=== PATIENT | female | born 1995 ===

== ENCOUNTER 2020-01-30 13:28 | Outpatient (REF) | payer OTHER, SELFPAY | END 2020-01-30 13:29 | disposition home or self-care (01) | LOC: HO.HMGCLDS 13:28 | PROVIDERS: PCP Internal Medicine; Visit Provider Internal Medicine | DX: Z20.828 Contact with and (suspected) exposure to other viral communicable diseases (principal) | CPT/HCPCS: C9803; U0003 ==

== ENCOUNTER 2020-03-11 11:05 | Outpatient (REF) | payer OTHER, SELFPAY | END 2020-03-11 11:06 | disposition home or self-care (01) | LOC: HO.HMGCLDS 11:05 | PROVIDERS: PCP Internal Medicine; Visit Provider Internal Medicine | DX: Z20.828 Contact with and (suspected) exposure to other viral communicable diseases (principal) | CPT/HCPCS: C9803; U0003 ==

== ENCOUNTER 2020-03-18 12:15 | Outpatient (REF) | payer OTHER, SELFPAY | END 2020-03-18 12:16 | disposition home or self-care (01) | LOC: HO.HMGCLDS 12:15 | PROVIDERS: PCP Internal Medicine; Visit Provider Internal Medicine | DX: Z20.828 Contact with and (suspected) exposure to other viral communicable diseases (principal) | CPT/HCPCS: C9803; U0003 ==

== ENCOUNTER 2020-04-01 11:27 | Outpatient (REF) | payer OTHER, SELFPAY | END 2020-04-01 11:28 | disposition home or self-care (01) | LOC: HO.HMGCLDS 11:27 | PROVIDERS: PCP Internal Medicine; Visit Provider Internal Medicine | DX: Z20.822 Contact with and (suspected) exposure to COVID-19 (principal) | CPT/HCPCS: 36415; C9803; U0003 ==

== ENCOUNTER 2020-10-11 11:50 | Outpatient (REF) | payer OTHER, SELFPAY ==
--- NOTE | ~2020-10-11 | XR_ITS ---
EXAMINATION: XR TOES, LEFT CLINICAL INFORMATION: Unable to move first second and third toes. COMPARISON: None TECHNIQUE: 3 views of the left toes were obtained. FINDINGS: There are no fractures or dislocations. No joint effusion is identified. No bone, joint or soft tissue abnormality is demonstrated. XR/XR toe LT min 2V IMPRESSION: Unremarkable left third, fourth and fifth toes.
== END 2020-10-11 11:51 | disposition home or self-care (01) ==
LOC: HO.HMGCX 11:50
PROVIDERS: PCP Internal Medicine; Visit Provider Internal Medicine
DX: S92.912A Unspecified fracture of left toe(s), initial encounter for closed fracture (principal)
CPT/HCPCS: 73660

== ENCOUNTER 2020-10-26 13:16 | Outpatient (REF) | payer OTHER, SELFPAY | END 2020-10-26 13:17 | disposition home or self-care (01) | LOC: HO.LNP 13:16 | PROVIDERS: Visit Provider Internal Medicine | DX: Z20.822 Contact with and (suspected) exposure to COVID-19 (principal) | CPT/HCPCS: U0003; U0005 ==

== ENCOUNTER 2022-12-18 12:37 | Outpatient (AMB) | payer OTHER, SELFPAY ==
--- NOTE | 2022-12-18 12:38 | A.OFFPC_ITS ---
Vital Signs 12/18/22 12:39 Height 5 ft 5 in Weight 215 lb BMI 35.8 BP 104/66 Blood Pressure Location Lt brachial Position Sitting Pulse 84 Pulse Source Palpation Intake Visit Reasons: PE Intake Note: Pt is here today for PE. Allergies No Known Allergies Allergy (Verified 12/18/22 12:41) Medication List - Last Reconciled 12/18/22 by Elliott Oglesby MD cholecalciferol (vitamin D3) 25 mcg PO DAILY 90 days norethindrone-e.estradiol-iron 1 mg-20 mcg (21)/75 mg (7) 1 tab PO QPM omeprazole 20 mg PO DAILY Tobacco use date assessed: 12/18/22 Dental Screening Dental Screen Date: 12/18/22 Did you have a dental visit in the last 12 months?: Yes Did you have a dental problem in the last 6 months where you did not have access to dental care?: No Was dental information given to patient?: Patient has dentist HPI PE HPI Details Patient is 27-year-old female came in today for physical examination Last time she was seen was July of this year when she presented with epigastric discomfort She was started on omeprazole she is feeling fine now. BMI is elevated at 35.8 patient is aware and is trying to lose weight She declined nail making machine setter appointment today. Labs are needed fasting order placed patient notified. She has a OBGYN with [facility] Pap smear is up-to-date. Follow-up 1 year for physical exam [facility] Social History Housing: House Patient Tobacco Use Status: Never used Tobacco e-Cigarette/Vaping Use: Never Used Second Hand Smoke Exposure: No Current occupational status: employed Cognitive needs: No Hearing needs: No Vision needs: No Questionnaire PHQ-9 Over the last 2 weeks, how often have you been bothered by any of the following problems? 1. Little interest or pleasure in doing things: not at all 2. Feeling down, depressed, or hopeless: not at all 3. Trouble falling or staying asleep, or sleeping too much: not at all 4. Feeling tired or having little energy: several days 5. Poor appetite or overeating: not at all 6. Feeling bad about yourself - or that you are a failure or have let yourself or your family down: not at all 7. Trouble concentrating on things, such as reading the newspaper or watching television: not at all 8. Moving or speaking so slowly that other people could have noticed. Or the opposite - being so fidgety or restless that you have been moving around a lot m ore than usual: not at all 9. Thoughts that you would be better off or of hurting yourself in some way: not at all Total score: 1 Depression Screening Interpretation: Negative [id number] - PHQ-9 Billing: Yes Source: Developed by Drs. Ricki Doyle, Natividad Natarajan, Derek Gonzalez and colleagues, with an educational madelyn from [employer]. Thrive Questionnaire Date Thrive assessed: 12/18/22 I am a: Patient What is your living situation today?: I have a steady place to live Within the past 12 months, did the food you bought not last and you didn't have the money to get more?: Never true Within the past 12 months, did you worry whether your food would run out before you got money to buy more?: Never true Do you have trouble paying for medicines?: No Do you have trouble getting transportation to medical appointments?: No Do you have trouble paying your heating and electricity bill?: No Do you have trouble taking care of your child, family member or friend?: No Do you have trouble with day-to-day activities such as bathing, preparing meals, shopping, managing finances, etc.?: No Are you currently unemployed and looking for a job?: No Are you interested in more education?: No Currently or been in a relationship where the following occur: no concerns reported AUDIT C Alcohol Use Questionnaire (AUDIT-C) 1. How often do you have a drink containing alcohol?: Monthly or less 2. How many drinks containing alcohol do you have on a typical day when you are drinking?: 1 or 2 3. How often do you have six or more drinks on one occasion?: Never Total Score: 1 Score Reviewed/Action Taken: No FREDY-7 AMB Questionnaire FREDY-7 Date FREDY - 7 assessed: 12/18/22 Feeling nervous, anxious, or on edge: 0 = Not at all Not being able to stop or control worryin = Not at all Worrying too much about different things: 0 = Not at all Trouble relaxin = Not at all Being so restless that it is hard to sit still: 0 = Not at all Becoming easily annoyed or irritable: 0 = Not at all Feeling afraid as if something awful might happen: 0 = Not at all Total FREDY-7 score (0-4 normal; 5-9 mild; 10-14 moderate; 15-21 severe): 0 Source: Developed by Drs. Ricki Doyle, Natividad Natarajan, Derek Gonzalez and colleagues, with an educational madelyn from [employer]. FREDY-7 Assessment Billing FREDY-7 Assessment Tool: FREDY-7 Assessment 84137 Review of Systems Const Denies chills, Denies fever(s) and Denies headache(s) Eyes Denies blurry vision ENT Denies headache(s), Denies nasal discharge, Denies nasal obstruction, Denies odynophagia and Denies sinus pain Card Denies chest pain at rest and Denies chest pain with activity Resp Denies cough and Denies hemoptysis GI Denies diarrhea, Denies odynophagia, Denies vomiting and Denies hematemesis Reports as per HPI Musc Denies abnormal gait Skin/Breast Reports as per HPI Neuro Denies Neuro-related abnormal movements, Denies Abnormal speech present, Denies abnormal gait, Denies headache(s) and Denies Sensory deficit (Neuro) Psych Denies mood swings and Denies paranoia Endo Reports as per HPI Karl/Lymph Reports as per HPI Aller/Immun Reports as per HPI Physical exam (Primary Care) Vital Signs: Last Vital Signs Pulse 84 12/18/22 12:39 BP 104/66 12/18/22 12:39 BMI result Body Mass Index 35.8 Tobacco/Smoking Status: Tobacco use Status Tobacco use date assessed 12/18/22 12/18/22 12:44 Patient Tobacco Use Status Never used Tobacco 12/18/22 12:39 e-Cigarette/Vaping Use Never Used 12/18/22 12:39 PHQ-9: PHQ-9 Score PHQ-9: Total score 1 12/18/22 12:44 Depression Screening Interpretation: Negative Thrive Assessment: Date of Thrive Assessment Date Thrive assessed 12/18/22 12/18/22 12:44 Currently or been in a relationship where the following occur: no concerns reported Const General: cooperative, comfortable and no acute distress Orientation/consciousness: patient oriented x3 [facility] Head: Yes normocephalic and Yes atraumatic Eyes General: appearance normal, both eyes and all related structures Pupils: Equal, round and reactive pupils present EOM: EOMs intact bilaterally Neck Neck: Yes supple and No lymphadenopathy Thyroid: Thyroid normal Lymphatic: no lymphadenopathy noted Chest Breast/axilla palpation: normal palpation of the breasts Resp Effort & Inspection: normal respiratory effort and able to speak in complete sentences Auscultation: clear to auscultation bilaterally Cardio Heart sounds: S1 normal heart sound present and S2 normal heart sound present GI Palpation (GI): Soft to palpation and nontender Auscultation: normal bowel sounds General: Yes no CVA tenderness Back/Spine/Pelvis Back: no CVA tenderness Skin General skin exam: elasticity normal and turgor normal Neuro General: patient oriented x3 and gait normal Cranial nerves: Yes Equal, round and reactive pupils present Speech: No Abnormal speech present Sensory Exam: No Sensory deficit (Neuro) Coordination: tandem gait normal and Romberg test negative Extrem General: Yes normal exam except as noted and No edema Assessment and Plan Assessment & Plan (1) Encounter for general adult medical examination with abnormal findings: Code(s): Z00.01 - Encounter for general adult medical examination with abnormal findings (2) Chronic GERD: Code(s): K21.9 - Gastro-esophageal reflux disease without esophagitis (3) Obesity due to excess calories: Code(s): E66.09 - Other obesity due to excess calories Qualifiers: Obesity classification: adult class 2 (BMI 35 - 39.9) Serious obesity comorbidity presence: without serious comorbidity Body mass index: BMI 35.0- 35.9 Qualified Code(s): E66.09 - Other obesity due to excess calories; Z68.35 - Body mass index [BMI] 35.0-35.9, adult Plan Patient is 27-year-old female came in today for physical examination Last time she was seen was July of this year when she presented with epigastric discomfort She was started on omeprazole she is feeling fine now. BMI is elevated at 35.8 patient is aware and is trying to lose weight She declined nail making machine setter appointment today. Labs are needed fasting order placed patient notified. She has a OBGYN with [facility] Pap smear is up-to-date. Follow-up 1 year for physical exam Orders: Orders Complete Blood Count Auto Diff Today E66.09 - Other obesity due to excess calories, K21.9 - Gastro-esophageal reflux disease without esophagitis, Z00.01 - Encounter for general adult medical examination with abnormal findings Lipid Panel Today E66.09 - Other obesity due to excess calories, K21.9 - Gastro-esophageal reflux disease without esophagitis, Z00.01 - Encounter for general adult medical examination with abnormal findings Comprehensive [place]. Panel Fast Today E66.09 - Other obesity due to excess calories, K21.9 - Gastro-esophageal reflux disease without esophagitis, Z00.01 - Encounter for general adult medical examination with abnormal findings TSH reflex Free T4 Today E66.09 - Other obesity due to excess calories, K21.9 - Gastro-esophageal reflux disease without esophagitis, Z00.01 - Encounter for general adult medical examination with abnormal findings Coding Level of Care Code Est Pt Prev Care 18-39y(37094) Diagnoses Encounter for general adult medical examination with abnormal findings Z00.01 Chronic GERD K21.9 Class 2 obesity due to excess calories without serious comorbidity with body mass index (BMI) of 35.0 to 35.9 in adult E66.09; Z68.35 Obesity classification: adult class 2 (BMI 35 - 39.9) Serious obesity comorbidity presence: without serious comorbidity Body mass index: BMI 35.0-35.9 Additional Codes FREDY-7 Assessment Billing - FREDY-7 Assessment Tool: FREDY-7 Assessment [id number] ([id number])
[2022-12-18 12:39] VITALS: BP 104/66; PULSE 84; BMI 35.8
== END 2022-12-18 12:58 | disposition home or self-care (01) ==
PROVIDERS: Visit Provider Internal Medicine
DX: Z00.01 Encounter for general adult medical examination with abnormal findings (principal); K21.9 Gastro-esophageal reflux disease without esophagitis; E66.09 Other obesity due to excess calories; Z68.35 Body mass index [BMI] 35.0-35.9, adult
CPT/HCPCS: 99395

== ENCOUNTER 2023-11-16 09:05 | Outpatient (AMB) | payer OTHER, SELFPAY ==
--- NOTE | 2023-11-16 09:15 | AM.OFFWIN_ITS ---
Intake Vital Signs 11/16/23 09:17 Height 5 ft 5 in Weight 218 lb BMI 36.3 BP 114/70 Blood Pressure Location Lt brachial Position Sitting Pulse 71 Pulse Source Pulse Oximeter Pulse Oximetry (%) 99 Oxygen Delivery Method Room Air Intake Visit Reasons: EP- Both eye rash Intake Note: Patient here for rash under both eyes that presented itself about 1 week ago. Patient Tobacco Use Status: Never used Tobacco Allergies No Known Allergies Allergy (Verified 11/16/23 09:17) Do you need a note to return to daycare/school/sports/work: No HPI EP- Both eye rash HPI Details 28-year-old female presents to the [facility] for a sick visit. Patient has a rash on both her upper eyelid and below the lower eyelid. Minimal itching. Symptoms present for the past week. [facility] Social History Housing: House Patient Tobacco Use Status: Never used Tobacco e-Cigarette/Vaping Use: Never Used Second Hand Smoke Exposure: No Current occupational status: employed Cognitive needs: No Hearing needs: No Vision needs: No Physical Exam Vital Signs: Last Vital Signs Pulse 71 11/16/23 09:17 BP 114/70 11/16/23 09:17 Pulse Ox 99 11/16/23 09:17 Oxygen Delivery Method Room Air 11/16/23 09:17 BMI result Body Mass Index 36.3 Skin Other: Face: Periorbital surface: Dry skin, minimal scaling. Conjunctiva is clear. Assessment & Plan Assessment & Plan (1) Rash: Code(s): R21 - Rash and other nonspecific skin eruption Plan: Hydrocortisone cream has been ordered. Patient was given instructions on the frequency and how to apply the cream. Medications: New hydrocortisone 2.5% 1 appl topical BID 20 grams 0RF Coding Level of Care Code Est Pt Level 3 (22973) Diagnoses Rash R21
[2023-11-16 09:17] VITALS: BP 114/70; PULSE 71; O2SAT 99; BMI 36.3
== END 2023-11-16 09:46 | disposition home or self-care (01) ==
PROVIDERS: PCP Internal Medicine; Visit Provider Internal Medicine
DX: R21 Rash and other nonspecific skin eruption (principal)
CPT/HCPCS: 99213

== ENCOUNTER 2023-12-31 10:56 | Outpatient (AMB) | payer OTHER, SELFPAY ==
[2023-12-31 11:01] VITALS: BP 116/72; PULSE 50; O2SAT 92; BMI 35.7
--- NOTE | 2023-12-31 11:01 | MHC.PC.OV ---
Vital Signs 12/31/23 11:01 Height 5 ft 5 in Weight 214 lb 6 oz BMI 35.7 BP 116/72 Blood Pressure Location Rt brachial Position Sitting Pulse 50 Pulse Source Pulse Oximeter Pulse Oximetry (%) 92 Oxygen Delivery Method Room Air Intake Visit Reasons: PE Allergies No Known Allergies Allergy (Verified 12/31/23 11:01) Medication List - Last Reconciled 12/31/23 by Elliott Oglesby MD norethindrone-e.estradiol-iron 1 mg-20 mcg (21)/75 mg (7) 1 tab PO QPM omeprazole 20 mg PO DAILY Tobacco use date assessed: 12/31/23 Dental Screening Dental Screen Date: 12/31/23 Did you have a dental visit in the last 12 months?: Yes Did you have a dental problem in the last 6 months where you did not have access to dental care?: No Was dental information given to patient?: Patient has dentist HPI PE HPI Details Patient is 28-year-old female came in today for physical exam Patient is established with [facility] last visit was March of this year Due for labs, last set of lab was few years back Order placed to be done fasting patient was notified BMI is elevated Patient has started going to gym and is controlling her diet GERD is stable with omeprazole 20 mg, refill sent Follow-up 1 year physical exam [facility] Social History Housing: House Patient Tobacco Use Status: Never used Tobacco e-Cigarette/Vaping Use: Never Used Second Hand Smoke Exposure: No Current occupational status: employed Cognitive needs: No Hearing needs: No Vision needs: No Questionnaire Thrive Questionnaire Date Thrive assessed: 12/31/23 I am a: Patient What is your living situation today?: I choose not to answer this question Within the past 12 months, did the food you bought not last and you didn't have the money to get more?: I choose not to answer this question Within the past 12 months, did you worry whether your food would run out before you got money to buy more?: I choose not to answer this question Do you have trouble paying for medicines?: I choose not to answer this question Do you have trouble getting transportation to medical appointments?: I choose not to answer this question Do you have trouble paying your heating and electricity bill?: I choose not to answer this question Do you have trouble taking care of your child, family member or friend?: I choose not to answer this question Do you have trouble with day-to-day activities such as bathing, preparing meals, shopping, managing finances, etc.?: I choose not to answer this question Are you currently unemployed and looking for a job?: No Are you interested in more education?: I choose not to answer this question Please select the resources that you would like help with: None Currently or been in a relationship where the following occur: I choose not to answer THRIVE Score: 0 AUDIT C Alcohol Use Questionnaire (AUDIT-C) 1. How often do you have a drink containing alcohol?: Never 3. How often do you have six or more drinks on one occasion?: Never Total Score: 0 Score Reviewed/Action Taken: Yes FREDY-7 AMB Questionnaire FREDY-7 Date FREDY - 7 assessed: 12/31/23 Feeling nervous, anxious, or on edge: 0 = Not at all Not being able to stop or control worryin = Not at all Worrying too much about different things: 0 = Not at all Trouble relaxin = Not at all Being so restless that it is hard to sit still: 0 = Not at all Becoming easily annoyed or irritable: 0 = Not at all Feeling afraid as if something awful might happen: 0 = Not at all Total FREDY-7 score (0-4 normal; 5-9 mild; 10-14 moderate; 15-21 severe): 0 Source: Developed by Drs. Ricki Doyle, Natividad Natarajan, Derek Gonzalez and colleagues, with an educational madelyn from [employer]. FREDY-7 Assessment Billing FREDY-7 Assessment Tool: FREDY-7 Assessment [id number] Review of Systems Const Denies chills, Denies fever(s) and Denies headache(s) Eyes Denies blurry vision ENT Denies headache(s), Denies nasal discharge, Denies nasal obstruction, Denies odynophagia and Denies sinus pain Card Denies chest pain at rest and Denies chest pain with activity Resp Denies cough and Denies hemoptysis GI Denies diarrhea, Denies odynophagia, Denies vomiting and Denies hematemesis Reports as per HPI Musc Denies abnormal gait Skin/Breast Reports as per HPI Neuro Denies Neuro-related abnormal movements, Denies Abnormal speech present, Denies abnormal gait, Denies headache(s) and Denies Sensory deficit (Neuro) Psych Denies mood swings and Denies paranoia Endo Reports as per HPI Karl/Lymph Reports as per HPI Aller/Immun Reports as per HPI Physical exam (Primary Care) Vital Signs: Last Vital Signs Pulse 50 12/31/23 11:01 BP 116/72 12/31/23 11:01 Pulse Ox 92 12/31/23 11:01 Oxygen Delivery Method Room Air 12/31/23 11:01 BMI result Body Mass Index 35.7 Tobacco/Smoking Status: Tobacco use Status Tobacco use date assessed 12/31/23 12/31/23 11:03 Patient Tobacco Use Status Never used Tobacco 12/31/23 11:03 e-Cigarette/Vaping Use Never Used 12/31/23 11:03 Thrive Assessment: Date of Thrive Assessment Date Thrive assessed 12/31/23 12/31/23 11:08 Currently or been in a relationship where the following occur: I choose not to answer Const General: cooperative, comfortable and no acute distress Orientation/consciousness: patient oriented x3 [facility] Head: Yes normocephalic and Yes atraumatic Eyes General: appearance normal, both eyes and all related structures Pupils: Equal, round and reactive pupils present EOM: EOMs intact bilaterally Neck Neck: Yes supple and No lymphadenopathy Thyroid: Thyroid normal Lymphatic: no lymphadenopathy noted Resp Effort & Inspection: normal respiratory effort and able to speak in complete sentences Auscultation: clear to auscultation bilaterally Cardio Heart sounds: S1 normal heart sound present and S2 normal heart sound present GI Palpation (GI): Soft to palpation and nontender Auscultation: normal bowel sounds General: Yes no CVA tenderness Back/Spine/Pelvis Back: no CVA tenderness Skin General skin exam: elasticity normal and turgor normal Neuro General: patient oriented x3 and gait normal Cranial nerves: Yes Equal, round and reactive pupils present Speech: No Abnormal speech present Sensory Exam: No Sensory deficit (Neuro) Coordination: tandem gait normal and Romberg test negative Extrem General: Yes normal exam except as noted and No edema Coding Level of Care Code Est Pt Level 3 (42725) Est Pt Prev Care 18-39y(81175) Diagnoses Encounter for general adult medical examination with abnormal findings Z00.01 Chronic GERD K21.9 Class 2 obesity due to excess calories without serious comorbidity with body mass index (BMI) of 35.0 to 35.9 in adult E66.09; Z68.35 Body mass index: BMI 35.0-35.9 Obesity classification: adult class 2 (BMI 35 - 39.9) Serious obesity comorbidity presence: without serious comorbidity Additional Codes FREDY-7 Assessment Billing - FREDY-7 Assessment Tool: FREDY-7 Assessment 86873 ([id number]) Assessment & Plan Assessment & Plan (1) Encounter for general adult medical examination with abnormal findings: Code(s): Z00.01 - Encounter for general adult medical examination with abnormal findings Category: Medical (2) Chronic GERD: Code(s): K21.9 - Gastro-esophageal reflux disease without esophagitis Category: Medical (3) Obesity due to excess calories: Code(s): E66.09 - Other obesity due to excess calories Category: Medical Qualifiers: Body mass index: BMI 35.0-35.9 Obesity classification: adult class 2 (BMI 35 - 39.9) Serious obesity comorbidity presence: without serious comorbidity Qualified Code(s): E66.09 - Other obesity due to excess calories; Z68.35 - Body mass index [BMI] 35.0-35.9, adult Plan Patient is 28-year-old female came in today for physical exam Patient is established with [facility] last visit was March of this year Due for labs, last set of lab was few years back Order placed to be done fasting patient was notified BMI is elevated Patient has started going to gym and is controlling her diet GERD is stable with omeprazole 20 mg, refill sent Follow-up 1 year physical exam Orders: Orders TSH reflex Free T4 Today E66.09 - Other obesity due to excess calories, K21.9 - Gastro-esophageal reflux disease without esophagitis, Z00.01 - Encounter for general adult medical examination with abnormal findings, Z68.35 - Body mass index [BMI] 35.0-35.9, adult Complete Blood Count Auto Diff Today E66.09 - Other obesity due to excess calories, K21.9 - Gastro-esophageal reflux disease without esophagitis, Z00.01 - Encounter for general adult medical examination with abnormal findings, Z68.35 - Body mass index [BMI] 35.0-35.9, adult Comprehensive [place]. Panel Fast Today E66.09 - Other obesity due to excess calories, K21.9 - Gastro-esophageal reflux disease without esophagitis, Z00.01 - Encounter for general adult medical examination with abnormal findings, Z68.35 - Body mass index [BMI] 35.0-35.9, adult Lipid Panel Today E66.09 - Other obesity due to excess calories, K21.9 - Gastro-esophageal reflux disease without esophagitis, Z00.01 - Encounter for general adult medical examination with abnormal findings, Z68.35 - Body mass index [BMI] 35.0-35.9, adult Medications: Refilled omeprazole 20 mg PO DAILY 90 caps 3RF R10.13 - Epigastric pain
== END 2023-12-31 11:26 | disposition home or self-care (01) ==
PROVIDERS: PCP Internal Medicine; Visit Provider Internal Medicine
DX: Z00.00 Encounter for general adult medical examination without abnormal findings (principal); K21.9 Gastro-esophageal reflux disease without esophagitis; E66.812 Obesity, class 2; Z68.35 Body mass index [BMI] 35.0-35.9, adult

== ENCOUNTER → 2023-12-31 10:56 | Outpatient (BNVA) | payer OTHER, SELFPAY | PROVIDERS: PCP Internal Medicine; Visit Provider Internal Medicine | DX: Z00.00 Encounter for general adult medical examination without abnormal findings (principal); K21.9 Gastro-esophageal reflux disease without esophagitis; E66.09 Other obesity due to excess calories; Z68.35 Body mass index [BMI] 35.0-35.9, adult; Z79.899 Other long term (current) drug therapy | CPT/HCPCS: 96127 ==

== ENCOUNTER 2024-04-03 11:16 | Outpatient (REF) | payer OTHER, SELFPAY ==
--- NOTE | ~2024-04-03 | XR_ITS ---
EXAMINATION: XR KNEE, LEFT CLINICAL INFORMATION: M25.562 - Pain in left knee COMPARISON: None available. TECHNIQUE: Four views of the left knee. FINDINGS: No fracture or joint effusion. Alignment is anatomic. Joint spaces are maintained. No abnormal soft tissue calcification. XR/XR knee LT 4V IMPRESSION: Normal left knee. Electronically signed by: Red Ashford MD 04/03/2024 01:39 PM EST
== END 2024-04-03 11:17 | disposition home or self-care (01) ==
LOC: HO.HMGCX 11:16
PROVIDERS: PCP Internal Medicine; Visit Provider Physician Assistant
DX: M25.562 Pain in left knee (principal)
CPT/HCPCS: 73564

== ENCOUNTER 2024-04-03 11:16 | Outpatient (AMB) | payer OTHER, SELFPAY ==
[2024-04-03 12:52] VITALS: BP 100/62; PULSE 78; TEMP 36.8; O2SAT 96; BMI 35.4
--- NOTE | 2024-04-03 12:52 | MHC.OFFWIV ---
Intake Vital Signs 04/03/24 12:52 Height 5 ft 5 in Weight 213 lb BMI 35.4 BP 100/62 Blood Pressure Location Lt brachial Position Sitting Pulse 78 Pulse Source Pulse Oximeter Temp 98.3 F Temp Source Oral Pulse Oximetry (%) 96 Oxygen Delivery Method Room Air Intake Visit Reasons: EP Swollen LT knee Intake Note: Pt is here today c/o Lt knee pain x4 days no injury noted Patient Tobacco Use Status: Never used Tobacco Allergies No Known Allergies Allergy (Verified 04/03/24 12:54) HPI HPI Comments History of Present Illness Details She presents with L knee swelling Ongoing x a few days No known trauma onjury She said she works out but does not recall injury Worse with walking or ending She has tried ice and elevation without relief Pain level with walking 08/29 Patient said no surgeries to L knee in past, + issues in past Pt denies chance of PFSH Social History Housing: House Patient Tobacco Use Status: Never used Tobacco e-Cigarette/Vaping Use: Never Used Second Hand Smoke Exposure: No Current occupational status: employed Cognitive needs: No Hearing needs: No Vision needs: No Review of Systems Const Denies chills and Denies fever(s) Resp Denies cough Musc Reports arthralgias (L knee) Skin/Breast Denies rash and Reports skin swelling (L knee) Physical Exam Vital Signs: Last Vital Signs Temp 98.3 F 04/03/24 12:52 Pulse 78 04/03/24 12:52 BP 100/62 04/03/24 12:52 Pulse Ox 96 04/03/24 12:52 Oxygen Delivery Method Room Air 04/03/24 12:52 BMI result Body Mass Index 35.4 General: Non-toxic, NAD. Speaking full sentences. Skin: Warm dry throughout. Knees are symmetrical in size and shape bilaterally. No eryhema or warmth to joint with palpation Eye: EOMI Respiratory: No distress or accessory muscle use Cardiac: No calf pain or pedal edema MSK: No specific ttp of L knee patella, medial/lateral joint line. No pain with varus or valgus force applied. Flexion past 90 degrees and full extension. No ttp RLE Neurology: Alert. No aphasia or facial droop. Psych: Good mood and affect Assessment & Plan Assessment & Plan (1) Knee pain, left: Code(s): M25.562 - Pain in left knee Qualifiers: Chronicity: acute Qualified Code(s): M25.562 - Pain in left knee Plan: Patient seen and evaluated. Xray L knee: preserved knee joint spaces. No fx or osteoarthritis Given ortho referral TAMI wrap given Rest, ice, elevate Tylenol/Motrin Patient gave verbal understanding and had no additional questions or concerns at time of discharge All questions answered Orders: Referrals Orthopedics Referral M25.562 - Pain in left knee Coding Level of Care Code Est Pt Level 3 (73609) Diagnoses Acute pain of left knee M25.562 Chronicity: acute
== END 2024-04-03 14:08 | disposition home or self-care (01) ==
PROVIDERS: PCP Internal Medicine; Visit Provider Physician Assistant
DX: M25.562 Pain in left knee (principal)

== ENCOUNTER → 2024-04-03 13:24 | Outpatient (BNV) | payer OTHER, SELFPAY | PROVIDERS: PCP Internal Medicine; Visit Provider Radiology Diagnostic Radiology | DX: M25.562 Pain in left knee (principal) | CPT/HCPCS: 73564 ==

== ENCOUNTER 2025-01-02 14:28 | Outpatient (AMB) | payer OTHER, SELFPAY ==
--- NOTE | 2025-01-02 14:30 | A.OFFPC_ITS ---
Vital Signs 01/02/25 14:31 Height 5 ft 5 in Weight 214 lb BMI 35.6 BP 108/70 Blood Pressure Location Rt brachial Position Sitting Pulse 74 Pulse Source Pulse Oximeter Pulse Oximetry (%) 97 Oxygen Delivery Method Room Air Intake Visit Reasons: Annual Pe Gut Puller Required: No Accompanied by: Self / Same As Patient Allergies No Known Allergies Allergy (Verified 01/02/25 14:31) Medication List - Last Reconciled 01/02/25 by Elliott Oglesby MD norethindrone-e.estradiol-iron 1 mg-20 mcg (21)/75 mg (7) 1 tab PO QPM Tobacco use date assessed: 01/02/25 Dental Screening Dental Screen Date: 01/02/25 Did you have a dental visit in the last 12 months?: Yes Did you have a dental problem in the last 6 months where you did not have access to dental care?: No Was dental information given to patient?: Patient has dentist HPI Annual Pe HPI Details History of Present Illness The patient is a 29-year-old female presenting with a request for a routine physical examination. Low Vitamin D: - Previously identified in labs done in 2019. - instructed patient to start the supple ment if not already taking and continue Family History of Diabetes: - Mother has diabetes. - patient has no symptoms suggestive of diabetes but we will do the labs BMI 35.6, patient is trying to lose weight Routine Vaccinations: - Last Tetanus vaccine received in 2010. 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 Family History: - Mother has diabetes. Health Maintenance - Patient is due for Tetanus vaccination as last received in 2010. - Discussion of administering flu vaccin e. - Recommendation to check updated labora tory work, including fasting blood tests. - Encouragement to continue Vitamin D grady pplementation. - OBGYN with [facility] visits up-to-date lillian ast exam through them Medications - control pill Employment - Employed as a real estate recruiter. Patient Instructions - Continue with Vitamin D supplements. - Get Tetanus vaccine and flu shot, poss ibly at a pharmacy. - Complete fasting blood tests as ordere d. - Set up a patient portal to access lab results. Follow-up 1 year Review of Systems - General: No fever no chills - Neurological: No headaches no dizzin ess - Ear nose throat: No sore throat no hearing difficulty no ear pain - Cardiovascular: No syncope, no chest pain, no palpitations - Gastrointestinal: No nausea vomiting or diarrhea - Endocrine: No polyuria polydipsia no heat intolerance - Genitourinary: No dysuria - Skin: No new complaints Physical Exam General: Cooperative, healthy appearing, comfortable, no acute distress Orientation: Patient oriented x3 Limitations: None Head: Normal to inspection Ears: Within normal limit visually Nose: Normal external nose present Face and sinus: Normal facial exam Eyes: Appearance normal, extraocular movement intact pupils reactive Neck: Normal visual inspection and supple Respiratory: Normal respiratory effort and able to speak in complete sentences. Clear to auscultation, no stridor Cardiovascular: S1 and S2 RRR, Blood pressure 108 x 70 GI: Normal to inspection. Soft to palpation and nontender Skin: Turgor normal, no acute findings Neuro: Patient oriented x3, motor sensory intact, balance intact, tandem pass Extremities: Normal to inspection, no swelling of ankles, range of motion intact all joints . [facility] Surgical History No pertinent past surgical history Social History Housing: House Patient Tobacco Use Status: Never used Tobacco e-Cigarette/Vaping Use: Never Used Second Hand Smoke Exposure: No Current occupational status: employed Cognitive needs: No Hearing needs: No Vision needs: No Questionnaire PHQ-9 Over the last 2 weeks, how often have you been bothered by any of the following problems? 1. Little interest or pleasure in doing things: not at all 2. Feeling down, depressed, or hopeless: not at all 3. Trouble falling or staying asleep, or sleeping too much: not at all 4. Feeling tired or having little energy: not at all 5. Poor appetite or overeating: not at all 6. Feeling bad about yourself - or that you are a failure or have let yourself or your family down: not at all 7. Trouble concentrating on things, such as reading the newspaper or watching television: not at all 8. Moving or speaking so slowly that other people could have noticed. Or the opposite - being so fidgety or restless that you have been moving around a lot more than usual: not at all 9. Thoughts that you would be better off or of hurting yourself in some way: not at all Total score: 0 Depression Screening Interpretation: Negative Depression Screening Done: Yes 50248 - PHQ-9 Billing: Yes Source: Developed by Drs. Ricki Doyle, Natividad Natarajan, Derek Gonzalez and colleagues, with an educational madelyn from [employer] Thrive Questionnaire Date Thrive assessed: 01/02/25 I am a: Patient What is your living situation today?: I choose not to answer this question Within the past 12 months, did the food you bought not last and you didn't have the money to get more?: I choose not to answer this question Within the past 12 months, did you worry whether your food would run out before you got money to buy more?: I choose not to answer this question Do you have trouble paying for medicines?: I choose not to answer this question Do you have trouble getting transportation to medical appointments?: I choose not to answer this question Do you have trouble paying your heating and electricity bill?: I choose not to answer this question Do you have trouble taking care of your child, family member or friend?: I choose not to answer this question Do you have trouble with day-to-day activities such as bathing, preparing meals, shopping, managing finances, etc.?: I choose not to answer this question Are you currently unemployed and looking for a job?: I choose not to answer this question Are you interested in more education?: I choose not to answer this question Please select the resources that you would like help with: None Currently or been in a relationship where the following occur: I choose not to answer THRIVE Score: 0 AUDIT C Alcohol Use Questionnaire (AUDIT-C) 1. How often do you have a drink containing alcohol?: Never 3. How often do you have six or more drinks on one occasion?: Never Total Score: 0 Score Reviewed/Action Taken: Yes FREDY-7 AMB Questionnaire FREDY-7 Date FREDY - 7 assessed: 01/02/25 Feeling nervous, anxious, or on edge: 0 = Not at all Not being able to stop or control worryin = Not at all Worrying too much about different things: 0 = Not at all Trouble relaxin = Not at all Being so restless that it is hard to sit still: 0 = Not at all Becoming easily annoyed or irritable: 0 = Not at all Feeling afraid as if something awful might happen: 0 = Not at all Total FREDY-7 score (0-4 normal; 5-9 mild; 10-14 moderate; 15-21 severe): 0 Source: Developed by Drs. Ricki Doyle, Natividad Natarajan, Derek Gonzalez and colleagues, with an educational madelyn from [employer] FREDY-7 Assessment Billing FREDY-7 Assessment Tool: FREDY-7 Assessment 28350 Physical exam (Primary Care) Vital Signs: Last Vital Signs Pulse 74 01/02/25 14:31 BP 108/70 01/02/25 14:31 Pulse Ox 97 01/02/25 14:31 Oxygen Delivery Method Room Air 01/02/25 14:31 BMI result Body Mass Index 35.6 Tobacco/Smoking Status: Tobacco use Status Tobacco use date assessed 01/02/25 01/02/25 14:33 Patient Tobacco Use Status Never used Tobacco 01/02/25 14:33 e-Cigarette/Vaping Use Never Used 01/02/25 14:33 PHQ-9: PHQ-9 Score PHQ-9: Total score 0 01/02/25 14:33 Depression Screening Interpretation: Negative Thrive Assessment: Date of Thrive Assessment Date Thrive assessed 01/02/25 01/02/25 14:33 Currently or been in a relationship where the following occur: I choose not to answer Coding Level of Care Code Est Pt Prev Care 18-39y(50745) Diagnoses Adult general medical exam Z00.00 Class 2 obesity due to excess calories without serious comorbidity with body mass index (BMI) of 35.0 to 35.9 in adult E66.09; Z68.35 Obesity classification: adult class 2 (BMI 35 - 39.9) Serious obesity comorbidity presence: without serious comorbidity Body mass index: BMI 35.0-35.9 Family history of diabetes mellitus Z83.3 Additional Codes FREDY-7 Assessment Billing - FREDY-7 Assessment Tool: FREDY-7 Assessment 74240 ([id number]) PHQ-9 - 39876 - PHQ-9 Billing: Yes ([id number]) Assessment & Plan Assessment & Plan (1) Adult general medical exam: Code(s): Z00.00 - Encounter for general adult medical examination without abnormal findings Category: Medical (2) Obesity due to excess calories: Code(s): E66.09 - Other obesity due to excess calories Category: Medical Qualifiers: Obesity classification: adult class 2 (BMI 35 - 39.9) Serious obesity comorbidity presence: without serious comorbidity Body mass index: BMI 35.0- 35.9 Qualified Code(s): E66.09 - Other obesity due to excess calories; Z68.35 - Body mass index [BMI] 35.0-35.9, adult (3) Family history of diabetes mellitus: Code(s): Z83.3 - Family history of diabetes mellitus Category: Medical Plan Low Vitamin D: - Previously identified in labs done in 2019. - instructed patient to start the supplement if not already taking and continue Family History of Diabetes: - Mother has diabetes. - patient has no symptoms suggestive of diabetes but we will do the labs BMI 35.6, patient is trying to lose weight Routine Vaccinations: - Last Tetanus vaccine received in 2010. 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 Family History: - Mother has diabetes. Health Maintenance - Patient is due for Tetanus vaccination as last received in 2010. - Discussion of administering flu vaccine. - Recommendation to check updated laboratory work, including fasting blood tests. - Encouragement to continue Vitamin D supplementation. 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 Patient Instructions - Continue with Vitamin D supplements. - Get Tetanus vaccine and flu shot, possibly at a pharmacy. - Complete fasting blood tests as ordered. - Set up a patient portal to access lab results. Follow-up 1 year . Orders: Orders Complete Blood Count Auto Diff Today E66.09 - Other obesity due to excess calories, Z00.01 - Encounter for general adult medical examination with abnormal findings, Z68.35 - Body mass index [BMI] 35.0-35.9, adult, Z83.3 - Family history of diabetes mellitus Comprehensive [place]. Panel Fast Today E66.09 - Other obesity due to excess calories, Z00.01 - Encounter for general adult medical examination with abnormal findings, Z68.35 - Body mass index [BMI] 35.0-35.9, adult, Z83.3 - Family history of diabetes mellitus Lipid Panel Today E66.09 - Other obesity due to excess calories, Z00.01 - Encounter for general adult medical examination with abnormal findings, Z68.35 - Body mass index [BMI] 35.0-35.9, adult, Z83.3 - Family history of diabetes mellitus TSH reflex Free T4 Today E66.09 - Other obesity due to excess calories, Z00.01 - Encounter for general adult medical examination with abnormal findings, Z68.35 - Body mass index [BMI] 35.0-35.9, adult, Z83.3 - Family history of diabetes mellitus
[2025-01-02 14:31] VITALS: BP 108/70; PULSE 74; O2SAT 97; BMI 35.6
--- OUTSIDE RECORDS SUMMARY | 2025-01-02 17:22 | XMS_ITS | Encounter Summary ---
Author Organization [facility] Address [address] [place] [address] Care Team Providers Care Tongue And Groove Machine Operator Name Role Phone Elliott Oglesby MD Primary Care Provider [phone] Encounter Details Date Type Department Care Team (Latest Contact Info) Description 12/05/2024 Lab Requisition [facility] - Main Lab [address] [facility] [place] [facility] [place] [employer] [address] Austin Rasheed MD [address] [id number] Encounter for screening for infections with a predominantly sexual mode of transmission Social History Tobacco Use Types Packs/Day Years Used Date Smoking Tobacco: Never Assessed Comments Unknown Sex and Gender Information Value Date Recorded Sex Assigned at Not on file Legal Sex Female 2:50 AM EST Gender Identity Not on file Sexual Orientation Not on file documented as of this encounter Plan of Treatment Not on file documented as of this encounter Procedures Procedure Name Priority Date/Time Associated Diagnosis Comments CHLAMYDIA TRACHOMATIS AND NEISSERIA GONORRHOEAE PCR Routine 12/05/2024 12:00 AM EDT Encounter for screening for infections with a predominantly sexual mode of transmission documented in this encounter Results * Chlamydia trachomatis and Neisseria gonorrhoeae molecular study (12/05/2024 12:00 AM EDT) Neisseria gonorrhoeae PCR Negative Negative LAB MOLECULAR DIAGNOSTICS METHOD 12/06/2024 9:13 AM EDT [facility] Chlamydia trachomatis PCR Negative Negative LAB MOLECULAR DIAGNOSTICS METHOD 12/06/2024 9:13 AM EDT [facility] Swab Cervix uteri structure / Unknown 12/05/2024 12/05/2024 6:09 PM EDT us Austin Rasheed MD LAB MICROBIOLOGY - GENERAL ORD ERABLES Final Result [facility] [address] [place] [address], documented in this encounter Visit Diagnoses Diagnosis Encounter for screening for infections with a predominantly sexual mode of transmission documented in this encounter Care Teams Tongue And Groove Machine Operator Relationship Specialty Start Date End Date Elliott Oglesby MD [address] [place] [phone] PCP - General Internal Medicine 12/06/24 documented as of this encounter
--- OUTSIDE RECORDS SUMMARY | 2025-01-02 17:22 | XMS_ITS | Clinical Summary ---
Author Organization [address] [facility] Address [address] [place] [address] Phone Care Team Providers Care Email Specialist Name Role Phone Elliott Oglesby MD Primary Care Provider [phone] Encounters Date Type Department Care Team Description 12/06/2024 Lab Requisition [facility] Lab [address] [place] [address] Austin Rasheed MD Encounter for gynecological examination (general) (routine) without abnormal findings 12/05/2024 Lab Requisition [facility] [address] [place] [address] Austin Rasheed MD Encounter for screening for infections with a predominantly sexual mode of transmission from Last 3 Months Social History Tobacco Use Types Packs/Day Years Used Date Smoking Tobacco: Never Assessed Comments Unknown Sex and Gender Information Value Date Recorded Sex Assigned at Not on file Legal Sex Female 2:50 AM EST Gender Identity Not on file Sexual Orientation Not on file Plan of Treatment Health Maintenance Due Date Last Done Comments DTaP,Tdap,and Td Vaccines (1 - Tdap) 2013 Hepatitis B Vaccines (1 of 3 - 19+ 3-dose series) 2013 HPV Vaccines (1 - 3-dose SCD M series) 2021 Depression Screening 03/22/2024 COVID-19 Vaccine ( - 2023-2 5 season) 2024 Influenza Vaccine (#1) 2024 HIV Screening 12/05/2024 Hepatitis C Screening 12/05/2024 Social Influencers of Health Screening 12/05/2024 Cervical Cancer Screening: P ap Smear 12/06/2027 12/05/2024 RSV Immunization Adult Patie nts (1 - 1-dose 75+ series) 2069 HIB Vaccines Aged Out No longer eligi ble based on patient's age to complete this topic Hepatitis A Vaccines Aged Out No long er eligible based on patient's age to complete this topic IPV Vaccines Aged Out No longer eligi ble based on patient's age to complete this topic MMR Vaccines Aged Out No longer eligi ble based on patient's age to complete this topic Meningococcal ACWY Vaccine Aged Out N o longer eligible based on patient's age to complete this topic Meningococcal B Vaccine Aged Out No l onger eligible based on patient's age to complete this topic Pneumococcal Vaccine: Pediat rics (0 to 5 Years) and At-Risk Patients (6 to 49 Years) Aged Out No longer eligi ble based on patient's age to complete this topic RSV Immunization Patients Un elana 20 months Aged Out No longer eligible b ased on patient's age to complete this topic Varicella Vaccines Aged Out No longer eligible based on patient's age to complete this topic Procedures Procedure Name Priority Date/Time Associated Diagnosis Comments PAP SMEAR Routine 12/05/2024 12:00 AM EDT Encounter for gynecological examination (general) (routine) without abnormal findings CHLAMYDIA TRACHOMATIS AND NEISSERIA GONORRHOEAE PCR Routine 12/05/2024 12:00 AM EDT Encounter for screening for infections with a predominantly sexual mode of transmission from Last 3 Months Results * Chlamydia trachomatis and Neisseria gonorrhoeae molecular study (12/05/2024 12:00 AM EDT) Neisseria gonorrhoeae PCR Negative Negative LAB MOLECULAR DIAGNOSTICS METHOD 12/06/2024 9:13 AM EDT [facility] Chlamydia trachomatis PCR Negative Negative LAB MOLECULAR DIAGNOSTICS METHOD 12/06/2024 9:13 AM EDT [facility] Swab Cervix uteri structure / Unknown 12/05/2024 12/05/2024 6:09 PM EDT us Austin Rasheed MD LAB MICROBIOLOGY - GENERAL ORD ERABLES Final Result [facility] [address] [place] [address], [place] [phone] * Pap smear (12/05/2024 12:00 AM EDT) Interpretation Negative for intraepithelial lesion or malignancy 12/22/2024 11:47 AM EDT [facility] at 1147 EDT General Categorization Negative 12/22/2024 11:47 AM EDT [facility] LMP 11/15/2024 12/22/2024 11:47 AM EDT [facility] Additional Information [facility] 202112[facility] Specimen Adequacy Satisfactory for evaluation, endocervical/graham sformation zone component absent 12/22/2024 11:47 AM [facility] Pap Methodology Liquid Based Pap Test 12/22/2024 11:47 AM EDT [facility] Disclaimer The Pap test is a screening test which carries an inherent false negative rate. These test results should be correlated with the patient's clinical findings and history. This Pap test was processed using an automated screening system. Technical cytopathology services provided by [facility], at [address] [place] [address] (CLIA # [id number]/Parth Tapia MD, Admissions Dean.) 12/22/2024 11:47 [facility] Console Pap Interpretation Reported 12/22/2024 11:47 [facility] Brushing/Spatula Cervix uteri structure / Unknown 12/05/2024 12/06/2024 6:51 AM EDT Austin Rasheed MD LAB CYTOLOGY ORDERABLES Final Result [facility] [address] [place], [place] [address] [phone] from Last 3 Months Insurance [employer] Care Teams Email Specialist Relationship Specialty Start Date End Date Elliott Oglesby MD [address] [place] [address] PCP - General Internal Medicine 12/06/24
--- OUTSIDE RECORDS SUMMARY | 2025-01-02 17:22 | XMS_ITS | Encounter Summary ---
Author Organization [facility] Address [address] [place] [address] Care Team Providers Care Bottoming Room Inspector Name Role Phone Elliott Oglesby MD Primary Care Provider [phone] Encounter Details Date Type Department Care Team (Latest Contact Info) Description 12/06/2024 Lab Requisition [facility] - Main Lab [address] [facility] [place] [address] Austin Rasheed MD [address] [phone] Encounter for gynecological examination (general) (routine) without abnormal findings Social History Tobacco Use Types Packs/Day Years [...] gynecological examination (general) (routine) without abnormal findings documented in this encounter Results * Pap smear (12/05/2024 12:00 AM EDT) Interpretation Negative for intraepithelial lesion or malignancy 12/22/2024 11:47 AM EDT [facility] at 1147 EDT General Categorization Negative 12/22/2024 11:47 AM EDT [facility] LMP 11/15/2024 12/22/2024 11:47 AM EDT [facility] Additional Information [facility] 202112/22/2024 11:47 AM EDT [facility] Specimen Adequacy Satisfactory for evaluation, endocervical/graham sformation zone component absent 12/22/2024 11:47 AM EDT [facility] Pap Methodology Liquid Based Pap Test 12/22/2024 11:47 AM EDT [facility] Disclaimer The Pap test is a screening test which carries an inherent false negative rate. These test results should be correlated with the patient's clinical findings and history. This Pap test was processed using an automated screening system. Technical cytopathology services provided by [facility], at [address] [place] [id number] (CLIA # [id number]/Parth Tapia MD, Mechanical Repair Worker.) 12/22/2024 11:47 AM EDT [facility] Console Pap Interpretation Reported 12/22/2024 11:47 AM [facility] Brushing/Spatula Cervix uteri structure / Unknown 12/05/2024 12/06/2024 6:51 AM EDT us Austin Rasheed MD LAB CYTOLOGY ORDERABLES Final Result [facility] [address] [place] [address], documented in this encounter Visit Diagnoses Diagnosis Encounter for gynecological examination (general) (routine) without abnormal findings documented in this encounter Care Teams Bottoming Room Inspector Relationship Specialty Start Date End Date Elliott Oglesby MD [address] [place] [phone] PCP - General Internal Medicine 12/06/24 documented as of this encounter
== END 2025-01-02 14:52 | disposition home or self-care (01) ==
LOC: HO.HMCC 14:29
PROVIDERS: PCP Internal Medicine; Visit Provider Internal Medicine
DX: Z00.00 Encounter for general adult medical examination without abnormal findings (principal); E66.09 Other obesity due to excess calories; Z68.35 Body mass index [BMI] 35.0-35.9, adult; Z83.3 Family history of diabetes mellitus

== ENCOUNTER → 2025-01-02 14:28 | Outpatient (BNVA) | payer OTHER, SELFPAY | PROVIDERS: PCP Internal Medicine; Visit Provider Internal Medicine | DX: Z00.00 Encounter for general adult medical examination without abnormal findings (principal); E55.9 Vitamin D deficiency, unspecified; E66.09 Other obesity due to excess calories; Z83.3 Family history of diabetes mellitus; Z68.35 Body mass index [BMI] 35.0-35.9, adult | CPT/HCPCS: 96127 ==